=== PATIENT | female | born 1985 | race Caucasian/White ===

== ENCOUNTER 2017-08-12 15:05 | Emergency (ER) | payer OTHER ==
[~2017-08-12] VITALS: Ht 154.9 cm; Wt 70.0 kg
[~2017-08-12 15:05] MED LIST: LORT5TAB PO; Z.0.NO CURRENT MEDS
[2017-08-12 15:12] VITALS: BP 112/77; PULSE 94; RESP 18; TEMP 98.5; O2SAT 100
[2017-08-12] MEDS ORDERED: AMOX875T PO (17:27)
[2017-08-12] MEDS ORDERED: ZOFR4TAB PO (17:27)
[2017-08-12] MEDS ORDERED: ONDANSETRON ODT 4 MG TAB PO ONE (17:30)
--- NOTE | 2017-08-12 17:34 | PD ---
HPI Chief Complaint: Cold / Flu Symptoms Time Seen by Provider: 16:57 Travel History International Travel<30 days: No Contact w/Intl Traveler<30days: No Traveled to known affect area: No History of Present Illness HPI 31-year-old female who is 11 weeks , presents emergency department with 4 day history of flulike symptoms including headache, sore throat, cough, and vomiting. Patient states her vomiting seems to be related to her cough more than nausea. Patient denies chest pain or shortness of breath. Patient denies abdominal pain or vaginal bleeding. Patient will be requested she get checked out here. Rapid influenza was sent from triage. She has no known drug allergies PFSH Past Medical History ?: Social History Alcohol Use: No Tobacco Use: No Substance Use: No Allergies-Medications (Allergen,Severity, Reaction): Coded Allergies: No Known Allergies (Verified Adverse Reaction, Unknown, 08/12/17) Reported Meds & Prescriptions Reported Meds & Active Scripts Active Zofran (Ondansetron HCl) 4 Mg Tab 4 Mg PO Q6HR PRN Amoxicillin 875 Mg Tab 875 Mg PO BID 10 Days Lortab 5/500 (Acetaminophen/Hydrocodone Bitart) 5 Mg/500 Mg Tab 1 Tab PO QIDPRN Reported No Current Meds (Miscellaneous Medication) Misc Review of Systems Except as stated in HPI: all other systems reviewed are Neg General / Constitutional: Positive: Fever, Chills Eyes: No: Visual changes HENT: Positive: Headaches, Sore Throat, Rhinitis, Rhinorrhea, Congestion, No: Vertigo, Lightheadedness, Nosebleed, Neck Stiffness, Neck Pain, Dental Difficulties, Earache Cardiovascular: No: Chest Pain or Discomfort Respiratory: Positive: Cough, No: Shortness of Breath, Wheezing Gastrointestinal: Positive: Nausea, Vomiting, No: Diarrhea, Abdominal Pain Genitourinary: No: Dysuria Musculoskeletal: No: Pain Skin: No Rash Neurologic: No: Weakness Psychiatric: No: Depression Endocrine: No: Polydipsia Hematologic/Lymphatic: No: Easy Bruising Physical Exam Narrative GENERAL: Patient appears ill but not septic. SKIN: Warm and dry. Normal color. Normal turgor. No rash. HEAD: Atraumatic. Normocephalic. EYES: Pupils equal and round. No scleral icterus. No injection or drainage. ENT: No nasal bleeding or discharge. Mucous membranes pink and moist. TMs are clear bilaterally. Patient has moderate sinus tenderness with palpation to the frontal and maxillary sinuses more on the right than the left. Posterior pharynx shows cobblestoning and mild erythema with no significant tonsillitis. Postnasal drip is noted NECK: Trachea midline. Supple and nontender. CARDIOVASCULAR: Regular rate and rhythm. RESPIRATORY: No accessory muscle use. Clear to auscultation. Breath sounds equal bilaterally. GASTROINTESTINAL: Abdomen soft, non-tender, nondistended. Hepatic and splenic margins not palpable. MUSCULOSKELETAL: Extremities without clubbing, cyanosis, or edema. No obvious deformities. NEUROLOGICAL: Awake and alert. No obvious cranial nerve deficits. Motor grossly within normal limits. Five out of 5 muscle strength in the arms and legs. Normal speech. PSYCHIATRIC: Appropriate mood and affect; insight and judgment normal. Data Data Last Documented VS Vital Signs Date Time Temp Pulse Resp B/P (MAP) Pulse Ox O2 Delivery O2 Flow Rate FiO2 08/12/17 15:12 98.5 94 18 112/77 (89) 100 Room Air Orders Orders Influenzae A/B Antigen (08/12/17 15:22) Ondansetron Odt (Zofran Odt) (08/12/17 17:30) MDM Medical Decision Making Medical Screen Exam Complete: Yes Emergency Medical Condition: Yes Differential Diagnosis Influenza. Sinusitis. Nausea vomiting. . Narrative Course Rapid influenza is negative. Patient will be treated with amoxicillin 875 twice daily 10 days. Patient also given Zofran 4 mg 1 every 6 hours as needed #20. Patient can use Tylenol as needed for aches and pains and fever. Patient encouraged to use saline nasal spray for saline sinus irrigation. Work note was given. Patient to follow-up with primary care as needed. Diagnosis Primary Impression: Sinusitis, acute Qualified Codes: J01.40 - Acute pansinusitis, unspecified Additional Impression: Nausea and vomiting Qualified Codes: R11.2 - Nausea with vomiting, unspecified Referrals: Primary Care Physician Patient Instructions: General Instructions, Sinusitis (ED) Departure Forms: Work Release Enter return to work date: Aug 14, 2017 Additional Instructions: Rapid influenza is negative. Patient will be treated with amoxicillin 875 twice daily 10 days. Patient also given Zofran 4 mg 1 every 6 hours as needed #20. Patient can use Tylenol as needed for aches and pains and fever. Patient encouraged to use saline nasal spray for saline sinus irrigation. Work note was given. Patient to follow-up with primary care as needed. Med/Other Pt SpecificInfo: Prescription(s) given Scripts Ondansetron (Zofran) 4 Mg Tab 4 MG PO Q6HR Y for NAUSEA OR VOMITING, #20 TAB 0 Refills Prov: Patrick Pedro MD 08/12/17 Amoxicillin (Amoxicillin) 875 Mg Tab 875 MG PO BID for Infection for 10 Days, #20 TAB 0 Refills Prov: Patrick Pedro MD 08/12/17 Disposition: 01 DISCHARGE HOME Condition: Stable Rebel [place] Aug 12, 2017 17:34
== END 2017-08-12 18:24 | disposition home or self-care (01) ==
LOC: NEPD 15:05
DX: O26.891 Other specified pregnancy related conditions, first trimester (principal); J01.40 Acute pansinusitis, unspecified; O21.9 Vomiting of pregnancy, unspecified; Z3A.11 11 weeks gestation of pregnancy
CPT/HCPCS: 87804; 99283

== ENCOUNTER 2017-12-15 14:48 | Emergency (ER) | payer OTHER ==
[~2017-12-15 14:48] MED LIST changes: +AMOX875T PO; -LORT5TAB PO; -Z.0.NO CURRENT MEDS; +ZOFR4TAB PO
--- NOTE | 2017-12-15 15:52 | PD ---
HPI Chief Complaint headaches, nose bleeds, decr FM Date Seen: Dec 15, 2017 Time Seen: 15:41 Travel History International Travel<30 Days: No Contact w/Intl Traveler<30Days: No Known Affected Area: No History of Present Illness HPI 32y/o @ 28.4wks. She has PNC with Dr. Llanes. She called into his office with complaints of DENTON (chronic migraine), nose bleeds (1 month), and decr FM (today only). She was instructed to come in for evaluation. Regarding the HAs, she states that she has chronic migraines. She states that they have improved in and she doesn't take anything for them. For the nose bleeds, they have been happening approximately 3x/wk and for the past month. She states that it drips out and is a significant amt. She holds pressure and it stops. She denies symptoms of anemia. Her decr FM has been today only. She is feeling movement, just not as much. Denies LOF, VB, ctx. Weeks Gestation: 28 Para: 1 : 2 History Past Medical History Medical History: Denies Significant Hx Obstetric History Obstetric History 1. 12yrs ago 2. current Past Surgical History Surgical History: No Previous Surgery Family History Family History: Negative Social History Alcohol Use: No Tobacco Use: No Substance Abuse: No Allergies-Medications (Allergen,Severity, Reaction): Coded Allergies: No Known Allergies (Unverified , 08/12/17) Home Meds Active Scripts Ondansetron (Zofran) 4 Mg Tab, 4 MG PO Q6HR Y for NAUSEA OR VOMITING, #20 TAB 0 Refills Prov:Patrick Pedro MD 08/12/17 Amoxicillin (Amoxicillin) 875 Mg Tab, 875 MG PO BID for Infection for 10 Days, # 20 TAB 0 Refills Prov:Patrick Pedro MD 08/12/17 Physical Exam Narrative General: well developed, well nourished, no acute distress HEENT: normocephalic atraumatic, extraocular movements intact, neck supple Abdomen: soft, gravid, nontender, nondistended Extremities: full range of motion Skin: normal coloration, no rashes, no suspicious skin lesions noted Neurologic: cranial nerves 2-12 grossly intact, normal muscle tone, normal gait Psychiatric: normal mood and affect, appropriate FHTs: 150s, +accels, age appropriate variables (mild), moderate variability, reactive [place]: quiet Cvx: deferred Data Data Vital Signs Reviewed: Yes Orders Orders Vital Signs (Adult) .ON ADMISSION (12/15/17 15:32) ^ Labor Status (12/15/17 15:32) ^ Non Stress Test (12/15/17 15:32) Ed Discharge Order (12/15/17 15:32) MDM Plan 32y/o @ 28.4wks with chronic headaches, nose bleeds, and decr FM. 1. Headaches -- chronic migraines -- no change in quality, decreased frequency/intensity with -- advised on tylenol/benadryl PRN and avoidance of NSAIDs in preg -- BP normal thus not concerning for preE 2. nose bleeds -- discussed that these can be common in -- precautions reviewed 3. decr FM -- NST reactive -- precautions reviewed Dispo: stable for d/c home Diagnosis Diagnosis: Primary Impression: 28 weeks gestation of Additional Impressions: Chronic migraine Bleeding nose Decreased movement Stephanie Trejo MD Dec 15, 2017 15:52
== END 2017-12-15 16:05 | disposition home or self-care (01) ==
LOC: HOBED 14:48
DX: O36.8130 Decreased fetal movements, third trimester, not applicable or unspecified (principal); G43.909 Migraine, unspecified, not intractable, without status migrainosus; R04.0 Epistaxis; Z3A.28 28 weeks gestation of pregnancy; Z79.899 Other long term (current) drug therapy
CPT/HCPCS: 99282

== ENCOUNTER 2018-02-26 20:35 | Inpatient (IN) ==
--- NOTE | 2018-02-26 23:02 | ED ---
History of Present Illness Primary Care Physician: NOT REQUIRED Chief Complaint: 39 wks uc's History of Present Illness: started 1829 today Weeks Gestation:: 39 Para: 1 : 2 Review of Systems All other systems reviewed negative except as stated in HPI [facility] - Medical History Medical History: Medical History (Last Updated 02/26/18 @ 22:54 by Pavan Chamberlain MD) Patient denies medical problems - Surgical History Surgical History: Surgical History (Last Updated 02/26/18 @ 22:54 by Pavan Chamberlain MD) No history of previous surgery - Tobacco History Second Hand Smoke Exposure: No Smoking Status: Never smoker - Alcohol History How Often Do You Have a Drink Containing Alcohol: Never - Travel History History of Recent Travel: No Recent Travel in the [place] Within the Last 8 Weeks: No Recent Travel Out of the Country Within the Last 8 Weeks: No Medications and Allergies Allergies Allergy/AdvReac Type Severity Reaction Status Date / Time No Known Allergies Allergy Unverified 02/17/18 12:41 Exam Vital signs: Vital Signs 02/26/18 20:58 02/26/18 22:04 Temperature 98.0 F Pulse Rate 94 H 94 H Respiratory Rate 18 16 Blood Pressure 134/87 136/63 Intake & Output 02/26/18 02/26/18 02/27/18 06:59 18:59 06:59 Weight 84.395 kg Narrative: GENERAL: Well-nourished, well-developed patient. SKIN: Warm and dry. HEAD: Normocephalic and atraumatic. EYES: No scleral icterus. No injection or drainage. ENT: No nasal drainage noted. Mucous membranes pink. Airway patent. NECK: Supple, trachea midline. No JVD. CARDIOVASCULAR: Regular rate and rhythm without murmurs, gallops, or rubs. RESPIRATORY: Breath sounds equal bilaterally. No accessory muscle use. BREASTS: Bilateral exam showed no masses , no retractions, no nipple discharge. ABDOMEN/GI: Abdomen soft, non-tender, bowel sounds present, no rebound, no guarding Gravid to [40-] weeks size Fundal Height: [-40] GENITOURINARY: External Genitalia: intact and normal in appearance BUS glands: [wnl] Cervix: [mid-] Dilatation: [1-2] Effacement: [50] Station: [-3] Presentation: [vtx] Membranes: [intact ] Uterine Contractions: [q1-2 min] FHT's: Category: [1] Baseline: [130] Reactive: [yes] Variability: [moderate] Decels: [none] EXTREMITIES: No cyanosis , +1 edema. BACK: Nontender without obvious deformity. No CVA tenderness. NEUROLOGICAL: Awake and alert. Motor and sensory grossly within normal limits. Five out of 5 muscle strength in all muscle groups. Normal speech. Assessment and Plan - Diagnosis (1) 39 weeks gestation of Code(s): Z3A.39 - 39 weeks gestation of Status: Acute (2) Irregular contractions Code(s): O62.2 - Other uterine inertia Status: Acute (3) Active labor Status: Acute Discharge Plan - Discharge Disposition Patient Disposition: 30 Still Patient - Physicians Team ED Provider: Pavan Chamberlain Primary Care Provider: NOT REQUIRED, - Discharge Instructions Print Language: [place]
--- NOTE | 2018-02-26 23:10 | P.HPOB ---
History of Present Illness Primary Care Physician: NOT REQUIRED Chief Complaint: 39 wks uc's Weeks Gestation:: 39 PMFSH - Medical History Medical History: Medical History (Last Updated 02/26/18 @ 22:54 by Pavan Chamberlain MD) Patient denies medical problems - Surgical History Surgical History: Surgical History (Last Updated 02/26/18 @ 22:54 by Pavan Chamberlain MD) No history of previous surgery - Tobacco History Second Hand Smoke Exposure: No Smoking Status: Never smoker - Alcohol History How Often Do You Have a Drink Containing Alcohol: Never - Travel History History of Recent Travel: No Recent Travel in the [place] Within the Last 8 Weeks: No Recent Travel Out of the Country Within the Last 8 Weeks: No Medications and Allergies Allergies Allergy/AdvReac Type Severity Reaction Status Date / Time No Known Allergies Allergy Unverified 02/17/18 12:41 Exam Vital signs: Vital Signs 02/26/18 20:58 02/26/18 22:04 Temperature 98.0 F Pulse Rate 94 H 94 H Respiratory Rate 18 16 Blood Pressure 134/87 136/63 Intake & Output 02/26/18 02/26/18 02/27/18 06:59 18:59 06:59 Weight 84.395 kg Narrative: GENERAL: Well-nourished, well-developed patient. SKIN: Warm and dry. HEAD: Normocephalic and atraumatic. EYES: No scleral icterus. No injection or drainage. ENT: No nasal drainage noted. Mucous membranes pink. Airway patent. NECK: Supple, trachea midline. No JVD. CARDIOVASCULAR: Regular rate and rhythm without murmurs, gallops, or rubs. RESPIRATORY: Breath sounds equal bilaterally. No accessory muscle use. BREASTS: Bilateral exam showed no masses , no retractions, no nipple discharge. ABDOMEN/GI: Abdomen soft, non-tender, bowel sounds present, no rebound, no guarding Gravid to [40-] weeks size Fundal Height: [-40] GENITOURINARY: External Genitalia: intact and normal in appearance BUS glands: [wnl] Cervix: [mid-] Dilatation: [1-2] Effacement: [50] Station: [-3] Presentation: [vtx] Membranes: [intact ] Uterine Contractions: [q1-2 min] FHT's: Category: [1] Baseline: [130] Reactive: [yes] Variability: [moderate] Decels: [none] EXTREMITIES: No cyanosis , +1 edema. BACK: Nontender without obvious deformity. No CVA tenderness. NEUROLOGICAL: Awake and alert. Motor and sensory grossly within normal limits. Five out of 5 muscle strength in all muscle groups. Normal speech. Caprini VTE Risk Assessment Caprini VTE Risk Assessment: No/Low Risk (score <= 1) (low risk) Caprini Risk Assessment Model: Point Value = 1 Point Value = 2 Point Value = 3 Point Value = 5 Age 41-60 Minor surgery BMI > 25 kg/m2 Swollen legs Varicose veins or History of unexplained or recurrent spontaneous Oral contraceptives or hormone replacement Sepsis (< 1 month) Serious lung disease, including pneumonia (< 1 month) Abnormal pulmonary function Acute myocardial infarction Congestive heart failure (< 1 month) History of inflammatory bowel disease Medical patient at bed rest Age 61-74 Arthroscopic surgery Major open surgery (> 45 min) Laparoscopic surgery (> 45 min) Malignancy Confined to bed (> 72 hours) Immobilizing plaster cast Central venous access Age >= 75 History of VTE Family history of VTE Factor V Leiden Prothrombin [id number] Lupus anticoagulant Anticardiolipin antibodies Elevated serum homocysteine Heparin-induced thrombocytopenia Other congenital or acquired thrombophilia Stroke (< 1 month) Elective arthroplasty Hip, pelvis, or leg fracture Acute spinal cord injury (< 1 month) Prophylaxis Regimen: Total Risk Factor Score Risk Level Prophylaxis Regimen 0-1 Low Early ambulation 2 Moderate Order ONE of the following: *Sequential Compression Device (SCD) *Heparin 5000 units SQ BID 3-4 Higher Order ONE of the following medications: *Heparin 5000 units SQ TID *Enoxaparin/Lovenox 40 mg SQ daily (WT < 150 kg, CrCl > 30 mL/min) *Enoxaparin/Lovenox 30 mg SQ daily (WT < 150 kg, CrCl > 10-29 mL/min) *Enoxaparin/Lovenox 30 mg SQ BID (WT < 150 kg, CrCl > 30 mL/min) AND/OR *Sequential Compression Device (SCD) 5 or more Highest Order ONE of the following medications: *Heparin 5000 units SQ TID (Preferred with Epidurals) *Enoxaparin/Lovenox 40 mg SQ daily (WT < 150 kg, CrCl > 30 mL/min) *Enoxaparin/Lovenox 30 mg SQ daily (WT < 150 kg, CrCl > 10-29 mL/min) *Enoxaparin/Lovenox 30 mg SQ BID (WT < 150 kg, CrCl > 30 mL/min) AND *Sequential Compression Device (SCD) Assessment and Plan - Diagnosis (1) 39 weeks gestation of Code(s): Z3A.39 - 39 weeks gestation of Status: Acute (2) Irregular contractions Code(s): O62.2 - Other uterine inertia Status: Acute (3) Active labor Status: Acute
[2018-02-26] MEDS ORDERED: Sodium Chlor 0.9% Inj 500 ML IV.SIG PRN (23:12)
[2018-02-26] MEDS ORDERED: Oxytocin 30 Units/500ml Premix 30 UNITS/500 ML BAG IV.SIG ONE (23:12)
[2018-02-26] MEDS ORDERED: fentaNYL Citrate Inj 100 MCG/2 ML Ampul IV.PUSH PRN ×2 (23:12)
[2018-02-26] MEDS ORDERED: Sod Chloride 0.9% Inj 1,000 ML IV.CONT PRN (23:12)
[2018-02-26] MEDS ORDERED: Naloxone Inj 0.4 MG/ML Vial IV.PUSH PRN (23:12)
[2018-02-26] MEDS ORDERED: Citric Acid/Sodium Citrate Liq 30 ML UDC PO SCH (23:15)
[2018-02-26 23:23] LABS: Baso % (Auto) 0.2 % (0.0-2.0); Eos # (Auto) 0.1 th/mm3 (0.0-0.4); Eos % (Auto) 0.7 % (0.0-4.0); Hematocrit 38.5 % (35.0-46.0); Hemoglobin 12.9 gm/dL (11.6-15.3); Lymph # (Auto) 1.9 th/mm3 (1.0-4.8); Lymph % (Auto) 23.7 % (9.0-44.0); Mean Corpuscular HGB Conc 33.5 % (32.0-36.0); Mean Corpuscular Hemoglobin 29.9 pg (27.0-34.0); Mean Platelet Volume 8.2 fL (7.0-11.0); Mono # (Auto) 0.8 th/mm3 (0.0-0.9); Neut # (Auto) 5.2 th/mm3 (1.8-7.7); Neut % (Auto) 65.4 % (16.0-70.0); Platelet Count 211 th/mm3 (150-450); Red Blood Count 4.32 mil/mm3 (4.00-5.30); Red Cell Distribution Width 15.7 % (11.6-17.2); White Blood Count 7.9 th/mm3 (4.0-11.0)
[2018-02-26] MEDS ORDERED: fentaNYL 2MCG-Bupiv 0.125% Epi 150 ML EPIDURAL ONE (23:32)
[2018-02-27 02:27] LABS: Bacteria,Urine Many /hpf; Bilirubin,Urine Negative (Negative); Clarity,Urine Hazy (Clear); Color,Urine Yellow (Yellw/Straw); Glucose,Urine (UA) Negative (Negative); Leukocyte Esterase,Urine Negative (Negative); Mucus,Urine Few /lpf (Occasional); Nitrite,Urine Negative (Negative); Specific Gravity,Urine 1.005 (1.002-1.035); Squamous Epithelial Cell,Urine 6 /hpf (0-5)
[2018-02-27 02:29] LABS: Amphetamine Urine With Conf Neg (Neg); Benzodiazepine Urine With Conf Neg (Neg)
[2018-02-27] MEDS ORDERED: fentaNYL Citrate Inj 100 MCG/2 ML Ampul EPIDURAL ONE (08:19)
[2018-02-27] MEDS ORDERED: fentaNYL 2MCG-Bupiv 0.125% Epi 150 ML EPIDURAL PRN (08:19)
[2018-02-27] MEDS ORDERED: Lidocaine 1% Inj 50 ML Vial ONE (10:39)
[2018-02-27] MEDS ORDERED: Oxytocin 30 Units/500ml Premix 30 UNITS/500 ML BAG ONE (10:39)
[2018-02-27] MEDS ORDERED: Bisacodyl 10 MG Supp RECTAL PRN (11:54)
[2018-02-27] MEDS ORDERED: Zolpidem Tartrate 5 MG Tablet PO PRN (11:54)
[2018-02-27] MEDS ORDERED: Naloxone Inj 0.4 MG/ML Vial IV.PUSH PRN (11:54)
[2018-02-27] MEDS ORDERED: Benzocaine 20% Top Spray 60 ML Can TOPICAL PRN (11:54)
[2018-02-27] MEDS ORDERED: Acetaminophen 325 MG Tablet PO PRN (11:54)
[2018-02-27] MEDS ORDERED: Oxytocin 30 Units/500ml Premix 30 UNITS/500 ML BAG IV.CONT SCH (12:00)
--- NOTE | 2018-02-27 12:03 | P.OBDELI ---
Weeks Gestation: 39 Patient Started Active Labor: Yes Active Labor Start Date: 02/26/18 Medical Induction of Labor: No Artificial Rupture of Membrane: No Artificial ROM Date: 02/27/18 Artificial ROM Time: 08:00 Anesthesia: Epidural Episiotomy: none Vaginal Delivery: Normal Presentation: Occiput anterior Nuchal Cord: None Delayed Cord Clamping (45 sec): No (moderate shoulder dystocia) Shoulder Dystocia: Suprapubic pressure given, Lavon maneuver done Placenta: Spontaneous delivery, Intact, Uterus explored +, 3 vessel cord Laceration: Perineal, 1 deg Estimated blood loss (mL): 300 : Female Infant Female A score (1 min): 8 score (5 min): 9 (Delivery of [place]. Moderate shoulder dystocia...Lavon did not work and supra pubic pressure applied. Delivery time from head to body was 60 seconds. baby is moving both arms well. There is a [id number] spongy soft non tender mass under the left arm. team is aware and present. Baby has great cry and is pink.)
[2018-02-27] MEDS ORDERED: Diphtheria/Tetanus/Pertussis Vaccine Inj 0.5 ML Syringe IM ONE (16:00)
[2018-02-27] MEDS ORDERED: Measles/Mumps/Rubella Vaccine Inj 0.5 ML Vial SQ ONE (16:00)
[2018-02-27] MEDS: Witch Hazel 50%/Glyderin 12.5% 40 Pad Jar RECTAL PRN (21:01)
[2018-02-27] MEDS: Ibuprofen 400 MG Tablet PO PRN (21:01)
[2018-02-28] MEDS: Ibuprofen 400 MG Tablet PO PRN ×3 (05:14→22:51)
[2018-02-28] MEDS: Senna/Docusate Sodium 8.6/50 MG Tablet PO SCH ×3 (07:46→22:51)
[2018-02-28] MEDS ORDERED: Hydrocortisone/Pramoxine Foam 10 GM Can RECTAL PRN (08:58)
--- NOTE | 2018-02-28 08:58 | P.PNOB ---
Subjective Post day: 1 Objective Vital Signs/I&O: Vital Signs 02/27/18 08:55 02/27/18 09:00 02/27/18 09:30 Temperature Pulse Rate 110 H 112 H Respiratory Rate 18 18 Blood Pressure 109/70 02/27/18 09:45 02/27/18 10:05 02/27/18 10:16 Temperature Pulse Rate 115 H 105 H 118 H Respiratory Rate 20 Blood Pressure 127/84 129/108 H 98/70 L 02/27/18 10:30 02/27/18 11:00 02/27/18 11:05 Temperature 99.5 F Pulse Rate 110 H 138 H Respiratory Rate 18 20 Blood Pressure 95/61 L 112/68 02/27/18 11:14 02/27/18 11:30 02/27/18 11:35 Temperature 99.4 F Pulse Rate 125 H Respiratory Rate 20 20 Blood Pressure 131/71 02/27/18 11:40 02/27/18 11:50 02/27/18 12:00 Temperature 99.6 F Pulse Rate 135 H 110 H Respiratory Rate 20 Blood Pressure 113/60 109/90 02/27/18 12:30 02/27/18 12:35 02/27/18 13:05 Temperature Pulse Rate 111 H 88 Respiratory Rate 20 20 Blood Pressure 125/73 121/66 02/27/18 14:26 02/27/18 20:00 Temperature 98.1 F 98.0 F Pulse Rate 88 82 Respiratory Rate 16 18 Blood Pressure 133/69 121/82 Intake & Output 02/27/18 02/28/18 02/28/18 18:59 06:59 18:59 Intake Total 1000 / 1000 Balance 1000 / 1000 Intake: IV 1000 / 1000 LR 1000 mL Inj 1,000 ML @ 125 1000 / 1000 mls/hr IV.CONT .Q8H [facility] Rx#: [id number] Result Diagrams: 02/26/18 22:15 Objective Remarks: GENERAL: Well-nourished, well-developed patient. CARDIOVASCULAR: Regular rate and rhythm without murmurs, gallops, or rubs. RESPIRATORY: Breath sounds equal bilaterally. No accessory muscle use. ABDOMEN/GI: Abdomen soft, non-tender. Fundus: Firm, non-tender at umbilicus. GENITOURINARY: Light to moderate bleeding. EXTREMITIES: No cyanosis or s+1 edema bilateral lower extremities, non-tender, without signs of DVT. Medications and IVs: Active Medications Acetaminophen (Tylenol) 650 mg PO Q4H PRN PRN Reason: PAIN SCALE 1 TO 2 Al Hydroxide/Mg Hydroxide (Milk Of Magnesia Liq) 30 ml PO Q12H PRN PRN Reason: Mild Constipation Benzocaine (Americaine 20% Top [place]) 1 spray TOPICAL Q4H PRN PRN Reason: For Perineum Discomfort Last Admin: 02/27/18 21:00 Dose: 1 spray Bisacodyl (Dulcolax Supp) 10 mg RECTAL DAILY PRN PRN Reason: SEVERE CONSITIPATION Ibuprofen (Motrin) 800 mg PO Q8H PRN PRN Reason: For cramping Last Admin: 02/28/18 05:14 Dose: 800 mg Lactulose (Lactulose Liq) 30 ml PO DAILY PRN PRN Reason: SEVERE CONSITIPATION Naloxone HCl (Narcan Inj) 0.1 mg IV.PUSH Q2M PRN PRN Reason: for opiate reversal Ondansetron HCl (Zofran Odt) 4 mg PO Q6H PRN PRN Reason: NAUSEA OR VOMITING Vit/Calcium/Iron/Folic Ac (Stuartnatal Plus 3) 1 tab PO DAILY [facility] Senna/Docusate Sodium (Suze-Colace) 1 tab PO BID [facility] Last Admin: 02/28/18 07:46 Dose: 1 tab Sennosides (Senokot) 17.2 mg PO Q12H PRN PRN Reason: Moderate Constipation Sodium Chloride (Ns Flush) 2 ml IV.FLUSH BID [facility] Last Admin: 02/27/18 21:02 Dose: 2 ml Sodium Chloride (Ns Flush) 2 ml IV.FLUSH PRN PRN PRN Reason: FLUSH AFTER USING IV ACCESS Witch Radah/Glycerin (Tucks Pads) 1 applicatio RECTAL QID PRN PRN Reason: HEMORRHOIDS Last Admin: 02/27/18 21:01 Dose: 1 applicatio Zolpidem Tartrate (Ambien) 5 mg PO HS PRN PRN Reason: SLEEP Assessment and Plan - Plan pt doing well pain well managed with oral medications pt c/o hemorrhoids, will order protcofoam will see senior information security consultant today bonding with hygroma to be evaluated today pt considering dc today, I'd like her to stay for support Discharge Planning: dc home tomorrow
[2018-02-28] MEDS: Witch Hazel 50%/Glyderin 12.5% 40 Pad Jar RECTAL PRN (15:19)
[2018-02-28] MEDS: Prenatal Vit/Ca/Iron/Folic Acid Tablet PO SCH (16:17)
[2018-03-01] MEDS: Senna/Docusate Sodium 8.6/50 MG Tablet PO SCH (08:22)
[2018-03-01] MEDS: Ibuprofen 400 MG Tablet PO PRN (08:22)
[2018-03-01] MEDS: Prenatal Vit/Ca/Iron/Folic Acid Tablet PO SCH (08:22)
--- NOTE | 2018-03-01 09:31 | P.PNOB ---
Subjective Post day: 2 Objective Vital Signs/I&O: Vital Signs 02/28/18 20:00 03/01/18 08:00 Temperature 98.1 F 98.1 F Pulse Rate 82 78 Respiratory Rate 18 18 Blood Pressure 115/67 110/70 Result Diagrams: 02/26/18 22:15 Objective Remarks: GENERAL: Well-nourished, well-developed patient. CARDIOVASCULAR: Regular rate and rhythm without murmurs, gallops, or rubs. RESPIRATORY: Breath sounds equal bilaterally. No accessory muscle use. ABDOMEN/GI: Abdomen soft, non-tender. Fundus: Firm, non-tender at umbilicus. GENITOURINARY: Light to moderate bleeding. EXTREMITIES: No cyanosis or edema, non-tender, without signs of DVT. Medications and IVs: Active Medications Acetaminophen (Tylenol) 650 mg PO Q4H PRN PRN Reason: PAIN SCALE 1 TO 2 Al Hydroxide/Mg Hydroxide (Milk Of Magnesia Liq) 30 ml PO Q12H PRN PRN Reason: Mild Constipation Benzocaine (Americaine 20% Top [place]) 1 spray TOPICAL Q4H PRN PRN Reason: For Perineum Discomfort Last Admin: 02/27/18 21:00 Dose: 1 spray Bisacodyl (Dulcolax Supp) 10 mg RECTAL DAILY PRN PRN Reason: SEVERE CONSITIPATION Ibuprofen (Motrin) 800 mg PO Q8H PRN PRN Reason: For cramping Last Admin: 03/01/18 08:22 Dose: 800 mg Lactulose (Lactulose Liq) 30 ml PO DAILY PRN PRN Reason: SEVERE CONSITIPATION Naloxone HCl (Narcan Inj) 0.1 mg IV.PUSH Q2M PRN PRN Reason: for opiate reversal Ondansetron HCl (Zofran Odt) 4 mg PO Q6H PRN PRN Reason: NAUSEA OR VOMITING Pramoxine HCl (Proctofoam) 1 applicatio RECTAL Q6H PRN PRN Reason: HEMORRHOIDS Last Admin: 02/28/18 13:05 Dose: 1 applicatio Vit/Calcium/Iron/Folic Ac (Stuartnatal Plus 3) 1 tab PO DAILY [facility] Last Admin: 03/01/18 08:22 Dose: 1 tab Senna/Docusate Sodium (Suze-Colace) 1 tab PO BID [facility] Last Admin: 03/01/18 08:22 Dose: 1 tab Sennosides (Senokot) 17.2 mg PO Q12H PRN PRN Reason: Moderate Constipation Sodium Chloride (Ns Flush) 2 ml IV.FLUSH BID [facility] Last Admin: 03/01/18 08:17 Dose: Not Given Sodium Chloride (Ns Flush) 2 ml IV.FLUSH PRN PRN PRN Reason: FLUSH AFTER USING IV ACCESS Witch Radha/Glycerin (Tucks Pads) 1 applicatio RECTAL QID PRN PRN Reason: HEMORRHOIDS Last Admin: 02/28/18 15:19 Dose: 1 applicatio Zolpidem Tartrate (Ambien) 5 mg PO HS PRN PRN Reason: SLEEP Assessment and Plan - Plan pt doing well pain well managed with oral medications Procto foam has helped will f/u with [facility] Discharge Planning: dc home today
--- NOTE | 2018-03-01 09:42 | P.DS ---
Date of admission: 02/26/18 23:01 Primary care physician: NOT REQUIRED Attending physician on discharge: dr Llanes Anticipated date of discharge: 03/01/18 Brief History from admission: 39 weeks , labor DS: Diagnosis - Discharge Diagnosis (1) (normal spontaneous vaginal delivery) Status: Acute DS: Medications - Discharge Medications Prescriptions: ibuprofen 800 mg PO Q8H PRN #30 tab PRN Reason: For cramping pramoxine 1 applicatio DC Q6H PRN #1 g PRN Reason: Hemorrhoids DS: Summary Hospital Course: 39 week labor routine care - Time Spent with Patient Total time spent providing and/or coordinating discharge services: Less than 30 minutes Exam Vital signs: Vital Signs 02/28/18 20:00 03/01/18 08:00 Temperature 98.1 F 98.1 F Pulse Rate 82 78 Respiratory Rate 18 18 Blood Pressure 115/67 110/70 Narrative: see pp exam note Results Procedures completed during hospitalization: Discharge Plan - Discharge Disposition Patient Disposition: 01 Discharge Home - Discharge Condition Condition: Good - Discharge Order Discharge Orders: Discharge Order (Routine); Ordered 03/01/18 Ordered By: Glenna Love PIN MACHINE TENDER Clear for Discharge (Routine); Ordered 03/01/18 Ordered By: Glenna Love - Discharge Details Anticipated Discharge Date: 03/01/18 - Physicians Team Primary Care Provider: NOT REQUIRED, Attending Provider: Gomez Llanes
== END 2018-03-01 14:00 | disposition home or self-care (01) ==
LOC: HOBED 20:35 → H2E 23:01 → H1EA 02-27 13:55
PROVIDERS: ADMIT Obstetrics & Gynecology; ATTEND Obstetrics & Gynecology